=== PATIENT | male | born 1950 | race Caucasian/White ===

== ENCOUNTER → 2020-12-08 10:16 | Outpatient (BNVA) | payer MEDICARE, OTHER, SELFPAY | PROVIDERS: PCP Nurse Practitioner Family; Visit Provider Internal Medicine | DX: Z13.89 Encounter for screening for other disorder (principal) | CPT/HCPCS: Q3014 ==

== ENCOUNTER → 2021-11-21 11:13 | Outpatient (BNVA) | payer MEDICARE, SELFPAY | PROVIDERS: PCP Nurse Practitioner Family; Visit Provider Internal Medicine | DX: G47.33 Obstructive sleep apnea (adult) (pediatric) (principal); Z99.89 Dependence on other enabling machines and devices | CPT/HCPCS: 99212 ==

== ENCOUNTER 2024-04-16 08:56 | Outpatient (REF) | payer MEDICARE, OTHER, SELFPAY ==
--- NOTE | ~2024-04-16 | FL_ITS ---
EXAMINATION: XR FLUOROSCOPY UPPER GI WITH AIR CLINICAL INFORMATION: Dysphagia COMPARISON: None TECHNIQUE: Fluoroscopic air contrast upper GI examination was performed utilizing standard techniques with thin and thick barium and effervescent granules. Numerous spot images were obtained. FINDINGS: Lateral cine images of the oropharynx and hypopharynx demonstrate delayed swallow mechanism. There is premature filling of the vallecula and piriform sinuses. There is laryngeal penetration observed with thick barium above the level the vocal cords. No tracheal penetration, glottic or subglottic aspiration identified. No nasopharyngeal reflux present. A small diverticulum is noted in the hypopharynx at the level C3. There was no significant cricopharyngeal achalasia. Dual and single contrast images of the esophagus demonstrate normal caliber, contour, and mucosal pattern. No evidence of mass, or ulcerations identified. Esophageal peristalsis was mildly disorganized. There is mild narrowing of the GE junction. 13 mm barium tablet was administered. There is temporary stasis of the barium tablet above the GE junction that eventually passes into the stomach with subsequent swallowing. No evidence of hiatus hernia identified. No significant gastroesophageal reflux was seen during the course of the examination and on reflux views. Dual contrast and single contrast images of the stomach demonstrated normal contour and mucosal pattern without evidence of mass. A small ulceration with pooling of contrast is noted in the fundus of the stomach just distal to the GE junction (RF 1-13, image 26; RF 1-14, image 185). No heaped up margins or significant surrounding edema. Contrast freely passed into the gastric antrum and duodenal bulb without delay. Single and air-contrast images of the duodenal bulb demonstrate no abnormality. The duodenal sweep has a normal appearance, course, and mucosal fold appearance. The imaged proximal jejunum has a normal fold pattern and caliber. FLUOROSCOPY TIME: 4 minutes 11 seconds Number of Spot Images: 8 Number of Cine: 17 DOSE AREA PRODUCT: [id number] uGy-m2 (microgray-meter squared) FL/FL barium swallow with air IMPRESSION: 1. Delayed swallowing mechanism with premature spillage/filling of the vallecula and pyriform sinuses. 2. Laryngeal penetration with thick barium above the level of the vocal cords. No subglottic aspiration observed. 3. Mild esophageal dysmotility. 4. Small focus of pooling consistent with ulceration posterior wall fundus of the stomach just proximal to the GE junction. No heaped up margins or significant perilesional edema. This suggests benign ulcer. Consider correlating with EGD. 5. Mild narrowing of the GE junction that may represent achalasia, or a mild short segment benign stricture. The causes temporary stasis of the barium tablet above the GE junction eventually passed into the stomach with subsequent swallowing. This procedure was performed by Curtis Fleming PA-C, and supervised by Dr. Lew
== END 2024-04-16 08:57 | disposition home or self-care (01) ==
LOC: HO.XRAY 08:56
PROVIDERS: PCP Nurse Practitioner Family; Visit Provider Internal Medicine
DX: R13.10 Dysphagia, unspecified (principal)
CPT/HCPCS: 74221

== ENCOUNTER → 2024-04-16 08:58 | Outpatient (BNV) | payer MEDICARE, OTHER, SELFPAY | PROVIDERS: PCP Nurse Practitioner Family; Visit Provider Physician Assistant Surgical | DX: R13.10 Dysphagia, unspecified (principal) | CPT/HCPCS: 74246 ==

== ENCOUNTER 2024-06-05 07:18 | Day surgery (SDC) | payer MEDICARE, OTHER, SELFPAY ==
[2024-06-03 15:09] VITALS: BMI 29.6
[2024-06-05 07:26] VITALS: BMI 28.6
--- NOTE | 2024-06-05 07:30 | P.CONAN_ITS ---
Documented by User: Miranda Silva NP 06/04/24 09:27 HPI - Anesthesia Eval Consult details Narrative: 73yo M for Upper Endoscopy and Colonoscopy [facility] Active Problems Active Problems: All Active Problems MARELY on CPAP (Acute) Past Medical History Medical History Prostate cancer Elevated cholesterol MARELY on CPAP Surgical History Surgical History Hx of bilateral hip replacements Hx of prostatectomy History of lung surgery H/O colonoscopy Social History Social History (Updated 06/03/24 @ 15:10 by Jessica Deshpande RN) Household Members: Spouse Patient Tobacco Use Status: Former Tobacco user Are you DNR?: No Advance Directives: No Advance Directives Information Provided: Yes Nutrition Risks: No Nutritional Risk Meds Allergies Allergy/AdvReac Type Severity Reaction Status Date / Time Penicillins Allergy Severe Hives Verified 06/05/24 07:40 morphine AdvReac Unknown paranoid Verified 06/05/24 07:40 Home Medications ?Medication ?Instructions ?Recorded ?Confirmed ?Last Taken ?Type calcium carbonate 600 mg-vitamin 1 tab PO DAILY 06/03/24 06/03/24 Unknown History D3 5 mcg (200 unit) tablet cyanocobalamin (vitamin B-12) 100 100 mcg PO DAILY 06/03/24 06/03/24 Unknown History mcg tablet (Vitamin B-12) omega 4-dbp-mpr-fish oil 900 1 cap PO DAILY 06/03/24 06/03/24 05/27/24 History mg-1,400 mg capsule,delayed release omeprazole 20 mg capsule,delayed 20 mg PO QAM 06/03/24 06/03/24 Unknown History release Exam Height,Weight and Vital Signs: Height 5 ft 6.5 in Weight 84.368 kg Assessment and Plan Assessment Anesthesia Assessment: Chart Reviewed Documented by User: Florence Fuentes DO 06/05/24 07:43 [facility] Past Medical History Medical History Prostate cancer Elevated cholesterol MARELY on CPAP Family History Family history of problems with anesthesia: No Surgical History Surgical History Hx of bilateral hip replacements Hx of prostatectomy History of lung surgery H/O colonoscopy History of Problems with Anesthesia: No Social History Social History (Updated 06/03/24 @ 15:10 by Jessica Deshpande RN) Household Members: Spouse Patient Tobacco Use Status: Former Tobacco user Are you DNR?: No Advance Directives: No Advance Directives Information Provided: Yes Nutrition Risks: No Nutritional Risk Meds Allergies Allergy/AdvReac Type Severity Reaction Status Date / Time Penicillins Allergy Severe Hives Verified 06/05/24 07:40 morphine AdvReac Unknown paranoid Verified 06/05/24 07:40 Home Medications ?Medication ?Instructions ?Recorded ?Confirmed ?Last Taken ?Type calcium carbonate 600 mg-vitamin 1 tab PO DAILY 06/03/24 06/03/24 Unknown History D3 5 mcg (200 unit) tablet cyanocobalamin (vitamin B-12) 100 100 mcg PO DAILY 06/03/24 06/03/24 Unknown History mcg tablet (Vitamin B-12) omega 0-eob-ekn-fish oil 900 1 cap PO DAILY 06/03/24 06/03/24 05/27/24 History mg-1,400 mg capsule,delayed release omeprazole 20 mg capsule,delayed 20 mg PO QAM 06/03/24 06/03/24 Unknown History release Exam Exam Date and Time: June 05, 2024 0730 Height,Weight and Vital Signs: Height 5 ft 6.5 in Weight 84.368 kg Vital Signs Temperature 98.2 F 06/05/24 07:38 Pulse Rate 57 06/05/24 07:38 Respiratory Rate 18 06/05/24 07:38 Blood Pressure 134/72 06/05/24 07:38 Pulse Oximetry 100 06/05/24 07:38 Oxygen Delivery Method Room Air 06/05/24 07:38 Temperature 98.2 F 06/05/24 07:38 Pulse Rate 57 06/05/24 07:38 Respiratory Rate 18 06/05/24 07:38 Blood Pressure 134/72 06/05/24 07:38 Pulse Oximetry 100 06/05/24 07:38 Oxygen Delivery Method Room Air 06/05/24 07:38 Airway Mallampati Class: II TM Dist: >3cm Neck ROM: Full Loose/Missing/Broken Teeth: No (patient denies any loose or broken teeth) Heart: S1S2 Lungs: CTAB Assessment and Plan Assessment Anesthesia Assessment: Anesthesia Plan Discussed and Chart Reviewed Final Anesthetic Review Family History of Problems with Anesthesia: No History of Problems with Anesthesia: No NPO: Yes ASA Class: II Final Preanesthetic Review: No Changes in Pt Med Stat, Meds/Allgs Chart Reviewed, Consent Obtained/Reviewed and Anes Risks/Benef Reviewed Patient Risk: Low Procedure Risk: Low Anesthetic Plan Anesthetic Plan: MAC: and Agree w/ Assess. and Plan Disposition: Standard PACU
[2024-06-05] MEDS: Lactated Ringers 1,000 ML 100 ML IVCONT (07:34)
[2024-06-05 07:38] VITALS: BP 134/72; PULSE 57; RESP 18; TEMP 36.8; O2SAT 100
[2024-06-05 08:52] VITALS: BP 103/63; PULSE 60; RESP 16; TEMP 36.3; O2SAT 97
--- NOTE | 2024-06-05 08:57 | PM.OP ---
Brief Operative Note Date of Service: 06/05/24 Pre-op diagnosis: GERD, Cough, Screening Post-op diagnosis: other (Hiatal hernia, Polyps) Procedure: EGD with biopsies, Colonoscopy to the cecum with cold snare polypectomy of ascending colon polyp and bx/removal of polyps Surgeon: Godwin Hernández MD Anesthesia: MAC Was an Bleach Plant Operator used for this Procedure?: No Estimated blood loss (mL): 2.0 Pathology: other (A. EG Junction at 39cm B. Rectal polyps C. Ascending colon polyp) Condition: stable Disposition: PACU
[2024-06-05 09:07] VITALS: BP 127/89; PULSE 56; RESP 16; O2SAT 98
--- NOTE | 2024-06-05 09:28 | OP_ITS ---
DATE OF SERVICE: 06/05/2024 SURGEON: Godwin Hernández MD INDICATIONS: The patient presents for evaluation of chronic coughing, abnormal barium swallow, colorectal cancer screening and personal history of tubular adenoma of the colon. Full consent has been obtained from him for this, including risks of bleeding and perforation. PREOPERATIVE DIAGNOSIS: POSTOPERATIVE DIAGNOSIS: PROCEDURE PERFORMED: Esophagogastroduodenoscopy with biopsies, and colonoscopy to the cecum with cold snare polypectomy, and biopsy and removal of polyps. ESTIMATED BLOOD LOSS: COMPLICATIONS: ANESTHESIA: Monitored anesthesia care. ASSISTANTS: SPECIMENS: PREOPERATIVE DIAGNOSES: Coughing, abnormal barium swallow, colorectal cancer screening, personal history of tubular adenomas. POSTOPERATIVE DIAGNOSES: Coughing, abnormal barium swallow, colorectal cancer screening, personal history of tubular adenomas, small hiatal hernia, small colon polyps, mild diverticulosis, and small internal hemorrhoids. DESCRIPTION OF PROCEDURE: The patient was placed in the left lateral decubitus position. The Olympus video gastroscope was passed in the posterior oropharynx and upper esophagus under direct vision. The scope was passed slowly into the distal esophagus. The gastroesophageal junction appeared at 39 cm. There was a very minimal irregularity and edema at this level, but there was no evidence of any inflammation nor any gross evidence of Mancuso esophagus. There was no sign of any obstructing esophageal ring, nor any other abnormality. The scope easily entered the stomach there was a small hiatal hernia. The scope was advanced to the pylorus, and the duodenum was cannulated to the descending portion. The duodenum including the bulb appeared normal without mass or ulceration. The scope was withdrawn back to the stomach. The gastric antrum and body appeared normal with good peristalsis. The scope was retroflexed, visualizing the proximal stomach carefully, which appeared normal, without any sign of mass or ulceration. Scope was straightened and withdrawn back to the esophagus. Biopsies were obtained at the EG junction at 39 cm. Proximal to this, the esophageal mucosa appeared normal. The proximal esophagus and upper esophageal sphincter appeared normal. The scope was withdrawn from the patient. He was turned around for the colonoscopy. The digital rectal exam revealed no abnormalities. The Olympus video pediatric colonoscope was entered into the rectum and advanced easily to the cecum. Once in the cecum, I did identify normal-appearing cecal pouch with appendiceal orifice and a normal-appearing ileocecal valve. The entire cecum and ileocecal valve appeared normal. The scope was slowly withdrawn assessing all mucosal surfaces carefully. Preparation was excellent. In the proximal ascending colon was a flat, approximately 6 mm polyp, which was removed by cold snare polypectomy and recovered by suction. The polypectomy site appeared clean, without any sign of residual polyp nor any significant bleeding. In the rectum were 2, approximately 3 mm polyps, which were each biopsied and completely removed with a cold biopsy forceps. I did not visualize any other polyps, colitis, or angiodysplasia. There was a mild amount of sigmoid diverticulosis. In the rectum scope was retroflexed visualizing internal hemorrhoids. The scope was straightened and withdrawn from the patient. He tolerated both procedures well and was returned to the recovery area in stable condition. IMPRESSION: 1. Colon polyps. 2. Diverticulosis. 3. Internal hemorrhoids. 4. Small hiatal hernia. PLAN: The results of the biopsies will be checked. Given these minimal findings and his age, I do not think he would need any further screening colonoscopies. He has been using omeprazole since the barium swallow, but this has not helped his cough. I do not think his cough is related to reflux and given today's findings, I advised him to stop the omeprazole. At this point, he will see me on a p.r.n. basis. This has been discussed with his . MD EFE Evans/ENEDINA / [phone]
--- NOTE | 2024-06-05 09:37 | PC.NURSE ---
24hr update documented on paper
== END 2024-06-05 09:49 | disposition home or self-care (01) ==
PROVIDERS: PCP Nurse Practitioner Family; Visit Provider Internal Medicine
PROC: (CPT 45385; principal; 2024-06-05 08:30)
DX: Z12.11 Encounter for screening for malignant neoplasm of colon (principal); Z86.010 Personal history of colon polyps; D12.2 Benign neoplasm of ascending colon; D12.8 Benign neoplasm of rectum; K57.30 Diverticulosis of large intestine without perforation or abscess without bleeding; K64.8 Other hemorrhoids; R13.10 Dysphagia, unspecified; R05.3 Chronic cough; K44.9 Diaphragmatic hernia without obstruction or gangrene; E78.5 Hyperlipidemia, unspecified; Z85.46 Personal history of malignant neoplasm of prostate; G47.33 Obstructive sleep apnea (adult) (pediatric); Z79.899 Other long term (current) drug therapy; Z99.89 Dependence on other enabling machines and devices; Z98.890 Other specified postprocedural states; Z88.0 Allergy status to penicillin; Z88.5 Allergy status to narcotic agent; Z87.891 Personal history of nicotine dependence
CPT/HCPCS: 45385; 45380; 43239; 88305; 88313; J1596; J2704

== ENCOUNTER 2025-01-20 15:37 | Outpatient (AMB) | payer MEDICARE, OTHER, SELFPAY ==
--- NOTE | 2025-01-20 15:47 | A.OFFVIS_ITS ---
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: No Allergies Penicillins Allergy (Severe, Verified 01/20/25 15:52) Hives morphine Adverse Reaction (Unknown, Verified 01/20/25 15:52) paranoid Medication List - Last Reviewed 01/20/25 by ARIELLA Bonner calcium carbonate-vitamin D3 600 mg-5 mcg (200 unit) 1 tab PO DAILY cholecalciferol (vitamin D3) 50 mcg PO DAILY cyanocobalamin (vitamin B-12) (Vitamin B-12) 100 mcg PO DAILY omega 2-giv-ujd-fish oil 900-1,400 mg 1 cap PO DAILY Do you need a note to return to daycare/school/sports/work: No HPI HPI Obstructive sleep apnea: Details: Arian is 74 years old male with diagnosis of obstructive sleep apnea for the past many years. He has been a regular user of CPAP all those years He had new CPAP device about 3 years ago. His CPAP device has been working fine and he is getting supplies every 6 months. He was on scheduled to be seen once a year by me but missed a couple years. Today he comes for a follow-up and states that his monitoring system indicates that he is having high level of obstructive events. And on those nights when he has high number of apneas, he does feels somewhat sleepy during the day. He has not put. on any extra weight He uses nasal mask which works fine, .and is comfortable His CPAP Machine works okay without making any unusual nice [facility] Medical History Prostate cancer Elevated cholesterol MARELY on CPAP Surgical History Hx of bilateral hip replacements Hx of prostatectomy History of lung surgery H/O colonoscopy Social History Household Members: Spouse Patient Tobacco Use Status: Former Tobacco user Review of Systems Const All systems reviewed & are unremarkable except as noted in HPI and below Eyes Reports no additional complaints ENT Reports nasal congestion (Mild off and on especially in the morning hours) Card Denies chest pain, Denies irregular heart rhythm and Denies leg edema GI Reports no additional complaints Reports no additional complaints Musc Reports no additional complaints Skin/Breast Reports system reviewed and no additional complaints, except as documented Neuro Reports no additional complaints Psych Reports no additional complaints Physical Exam Vital Signs: Last Vital Signs Pulse 77 01/20/25 15:48 BP 130/74 01/20/25 15:48 Pulse Ox 98 01/20/25 15:48 Oxygen Delivery Method Room Air 01/20/25 15:48 BMI result Body Mass Index 29.7 Const General: healthy appearing, comfortable, no acute distress, alert and awake Orientation/consciousness: patient oriented x3 HEENT Head: Yes normal to inspection General nose exam: No nasal polyps present, No nasal discharge present and Other nasal findings present (Mild hypertrophy of the inferior nasal turbinate on the left side .) Face and sinus: Yes sinuses nontender Mouth: oropharynx normal Throat: Yes posterior oropharynx normal Eyes General: appearance normal, both eyes and all related structures Neck Neck: Yes normal visual inspection, Yes no lymphadenopathy, Yes trachea midline and Yes no JVD Thyroid: Thyroid normal Chest Chest palpation & inspection: normal inspection of the chest, normal palpation of entire chest wall and no tenderness Resp Effort & Inspection: normal respiratory effort Auscultation: clear to auscultation bilaterally, no crackles and no wheezes Percussion: percussion normal Cardio Palpation: normal PMI Rate: regular rate Rhythm: regular rhythm Heart sounds: no gallops and no murmurs Peripheral pulses: Peripheral pulses 2+ throughout GI Palpation (GI): Soft to palpation, nontender, No hepatosplenomegaly present and no masses Auscultation: normal bowel sounds Back/Spine/Pelvis Thoracic/Lumbar Spine: thoracic and lumbar spine normal to inspection Skin General skin exam: no rashes or lesions noted Neuro General: patient oriented x3 and no focal motor deficits Cranial nerves: Yes CN's II-XII intact bilaterally Extrem General: Yes normal to inspection, Yes no clubbing, cyanosis or edema and Yes no calf tenderness Psych Appearance: grossly normal and well kempt Speech and movement: Normal speech and movement present Results Reviewed Results Reviewed: Compliance report for the last 30 nights is reviewed and he has used 30/30 nights, 100%. His average use it per. Night 8 hours 6 minutes Pressure is set at CPAP 9 cm, There is no significant air leak. His residual AHI is 14, which is high Assessment & Plan Assessment & Plan (1) MARELY on CPAP: Comment: LONG-TERM CASE OF MARELY. VERY COMPLIANT TO USE CPAP AT NIGHT, SLEEPS VERY GOOD AND HAS NO ISSUES RELATING TO THE MASK OR MACHINE HOWEVER THE CONTROL OF THE OBSTRUCTIVE EVENTS IS SUBOPTIMAL. I THINK THIS MAY BE DUE TO RELATIVELY LOW PRESSURE OF 9 CM. Code(s): G47.33 - Obstructive sleep apnea (adult) (pediatric); Z99.89 - Dependence on other enabling machines and devices Category: Medical Plan: WE WILL ADJUST THE PRESSURE UPWARD TO 12 CM, AND CHECK HIS COMPLIANCE REPORT AFTER 2 MONTHS. Coding Level of Care Code Est Pt Level 3 (81220) Diagnoses MARELY on CPAP G47.33; Z99.89
[2025-01-20 15:48] VITALS: BP 130/74; PULSE 77; O2SAT 98; BMI 29.7
--- OUTSIDE RECORDS SUMMARY | 2025-01-20 18:18 | XMS_ITS ---
[facility] Address [address] [place] [place] [address] Care Team Providers Care Director Ehs Name Role Phone Flaca Aylin LEE Primary Care Provider Unavail able Tarsha Villarreal Unavailable [phone] Allergies Allergen (clinical drug ingredient) Drug/Non Drug Allergy documented on EMR Reaction Allergy Type Onset Date Status morphine Morphine Extreme Paranoia Drug Allergy Active Penicillin hives Drug Allergy Active REASON FOR VISIT PCP: 08/2024, Fungal Nails, Skin Problem Medications Medication SIG (Take, Route, Frequency, Duration) Notes Start Date End Date Status Fish Oil Active B12 Active Calcium 600 MG 1 tablet with meals Orally Twice a day Active Ciclopirox 0.77 % 1 application Winder Tender ally Once a day for 30 days Active Vitamin D3 20 MCG (800 UNIT) 1 tablet Orally Once a day A ctive Ciclopirox Olamine 0.77 % 1 application Externally Twice a day to skin of feet including between the toes for 30 days Active Social History Tobacco Use: Social History Observation Description Date Details (start date - stop date) Former Smoker NA - NA Tobacco use other than smoking: Question Answer Notes Are you an other tobacco user? No Tobacco Control (Standard) Question Answer Notes Tobacco use: Former smoker How long has it been since you last smoked? 5-10 years Additional Findings: Tobacco non-user Current no nsmoker AUDIT-C (Standard) Question Answer Notes Did you have a drink contain ing alcohol in the past year? Yes How often did you have six o r more drinks on one occasion in the past year? Declined to specify (0 point) How many drinks did you have on a typical day when you were drinking in the past year? Declined to specify (0 point) How often did you have a dri nk containing alcohol in the past year? Daily or almost daily (4 points) Points 4 Interpretation Positive Vital Signs Height 5 ft 6inch in 10/26/2024 Weight 180 lbs 10/26/2024 BMI 29.05 kg/m2 10/26/2024 Procedures Procedure Date Ordered Date Performed Result Body Sit e 18970-WYUWTVA NAIL, 6 OR MORE 10/26/2024 N/A Encounters Encounter Location Date Provider Diagnosis [facility] [address] [place] [address] 10/26/2024 Tarsha Villarreal Pain in right toe(s) M79.674 ; Onychomycosis B35.1 ; Pain in left toe(s) M79.675 and Tinea pedis of both feet B35.3 Assessments Encounter Date Diagnosis (ICD Code) Assessment Notes Treatment Notes Treatment Clinical Notes Section Notes 10/26/2024 Pain in right toe(s) (ICD-10 - M79.674) 10/26/2024 Onychomycosis (ICD-10 - B35.1) 10/26/2024 Pain in left toe(s) (ICD-10 - M79.675) 10/26/2024 Tinea pedis of both feet (ICD-10 - B35.3) Plan Of Treatment Medication Medication Name Sig Start Date Stop Date Notes Ciclopirox 0.77 % 1 application Winder Tender ally Once a day for 30 days Ciclopirox Olamine 0.77 % 1 application Externally Twice a day to skin of feet including between the toes for 30 days Pending Test Test Name Order Date [id number] NAIL, 6 OR MORE 10/26/2024 Next Appt Details Follow Up: prn, Reason: Procedure Notes * Category Sub-Category Detail Notes Debride Nail 6-10 Nail debridement Due to the cl inical pathology outlined in the exam findings, performance of this nail treatment is medically necessary as its management by an unskilled/untrained nonprofessional would put this patients foot and overall health at risk. Therefore, debridement to affected nail(s), as described in exam ( TA, T1, T2, T3, T4, T5, T6, T7, T8, T9 ), was performed exclusively by the physician of record to reduce/remove overall nail length, girth, thickness, subungual debris, and necrotic tissue, by manual and/or electrical means through the use of a nail nipper and/or dremel-type external grinder tool, to a more viable healthy nail plate or bed tissue 6-10 nails in total. Silver nitrate was used for any petechial bleeding as necessary. Definitive antifungal treatment options, both pharmaceutical and surgical, have been reviewed and discussed with the patient. The patient solely prefers the use of intermittent/as needed professional debridement services for their nail condition and understands the need for additional periodic treatments to maintain effectiveness in symptomatic relief - 89975 Progress Notes * Collin MEEK DOB:[birth year] (74 yo M)Acc No.[id number]:10/26/2024 Progress Notes Patient:?Collin MEEK J r Provider:?Tarsha Villarreal DPM :1950???Age:74 Y???Sex:Male Joe e:10/26/2024 Address:[address] [place], [place] [id number] Pcp:ROSA Gomez Subjective: * Chief Complaints: * ???PCP: 08/2024Fungal NailsS kin Problem * HPI: ???Painful Nails:?Nature:?aching, tender, discolored, thick.?Location:?Both feet, all toes.?Duration:?several years.?Course:?worse.?Aggravated by:?shoegear causing difficulty standing/walking.?Treatments:?none.?Skin problems:?Nature:?scaling , redness.?Location:?B/L .?Duration:?several days.?Course:?worse.? * ROS:?General/Constitutional:?Nausea?denies.?Vomiting?denies.?Hunger Thirst?denies.?Loss appetite?denies.?Chills?denies.?Fatigue?denies.?Fever?denies.?Night Sweats?denies.?Unexplained weight loss?denies.?Unexplained weight gain?denies.?HEENTM:?Dentures?denies.?Dizziness?denies.?Glasses/contacts?admits.?Retinopathy?de nies.?Blurred/double vision?denies.?TMJ?denies.?Discharge/drainage?denies.?Implants?denies.?Sore throat?denies.?Dental implants?denies.?Hard of hearing ?denies.?Difficulty chewing/swallowing/speaking?denies.?Nose bleeds?denies.?Sore mouth?denies.?Respiratory:?On Oxygen?denies.?Pneumonia/pleurisy?denies.?Bronchitis?denies.?Emphysema?denies.?C oughing?denies.?Cough blood?denies.?Shortness of breath?denies.?Wheezing?denies.?Cardiovascular:?Pacemaker?denies.?MVP?denies.?WPW?denies.?CHF?denies.?Heart attack?denies.?Septal defect?denies.?Rapid beat?denies.?Chest pain ?denies.?Atrial Fib.?denies.?Murmur/Palpitations?denies.?Gastrointestinal:?Hemorrhoids?denies.?Stomach/Abdominal pain?denies.?Dark blood stool?denies.?Irritable bowel ?denies.?Constipation?denies.?Diarrhea?denies.?Hematology:?Swelling?denies.?Clots?denies.?Varicose Veins?denies.?Bruising?denies.?Bleeding problem?denies.?Genitourinary:?Blood urine?denies.?Frequent/Painfu/urination/bladder control?denies.?Kidney stones?denies.?Infection (UTI)?denies.?Nephropathy?denies.?sex trans dis (STD)?denies.?Prostate?admits.?Musculoskeletal:?Hammertoes?denies.?Bunions?denies.?Back Pain?denies.?Muscle Cramps/ Resting?denies.?Muscle cramps / walking?denies.?Generalized aches and pains?denies.?Weakness?denies.?Integ.:?Yip?denies.?Scars?denies.?Corns/calluses?denies.?Ingrown nails?denies.?Painful nails?denies.?Open Sores?denies.?Rashes?denies.?Neurologic:?Difficulty sleeping?denies.?Brain disorder?denies.?Numbness?denies.?Balance trouble?denies.?Confusion?denies.?Fainting/blackouts?denies.?Tingling?denies.?Tr emors?denies.? * Medical History:? * Surgical History:?Lower Left Lobectomy 11/1979prostatectomy 12/22/2015right hip replacement left hip replacement 08/29/2023Middle Right Lobectomy 2011Tendon surgery Left Thumb 04/28/2019 * Hospitalization/Major Diagno stic Procedure:?Denies Past Hospitalization * Family History:?Mother: dece ased, Foot problems, diagnosed with Family history of arthritis.?Father: .?Siblings: diagnosed with Other malignant neoplasm of unspecified site.? * Social History:?Tobacco Use:?Tobacco use other than smoking?Are you an other tobacco user??No ?Tobacco Control (Standard)?Tobacco use:?Former smoker ?How long has it been since you last smoked??5-10 years ?Additional Findings: Tobacco non-user?Current nonsmoker ???Drugs/Alcohol:?Drugs?Have you used drugs other than those for medical reasons in the past 12 months??No ???Miscellaneous:?Caffeine: yes, frequency: 3 cups. ?Exercise: yes, Gym excercise , 3-4 times per week. ?Marital status: . ?Occupation: Retired. ???Drug/Alcohol:?AUDIT-C (Standard)?Did you have a drink containing alcohol in the past year??Yes ?How often did you have six or more drinks on one occasion in the past year??Declined to specify (0 point) ?How many drinks did you have on a typical day when you were drinking in the past year??Declined to specify (0 point) ?How often did you have a drink containing alcohol in the past year??Daily or almost daily (4 points) ?Points?4 ?Interpretation?Positive * Medications:?TakingVitamin D 3 20 MCG (800 UNIT) Tablet 1 tablet Orally Once a day Calcium 600 MG Tablet 1 tablet with meals Orally Twice a day B12 Fish Oil Medication List reviewed and reconciled with the patientTaking Vitamin D3 20 MCG (800 UNIT) Tablet 1 tablet Orally Once a day Taking Calcium 600 MG Tablet 1 tablet with meals Orally Twice a day Taking B12 Taking Fish Oil Medication List reviewed and reconciled with the patient * Allergies:?Penicillin: hives Morphine: Extreme Paranoiayes[Allergies Verified] Objective: * Vitals:?Ht:5 ft 6inch, Wt:18 0, BMI:29.05, Shoe size:8.5EE, Ht-cm: 167.64 cm, Wt- k.65 kg. * Examination: ???General Examination: ?GENERAL APPEARANCE:?Reveals a pleasant, alert, well-nourished, well- developed, well hydrated individual, who demonstrates proper attention to hygiene/body habitus, and is in no acute distress, Pt serves as own?historian for office visit today.?ORIENTED:?person, place, and time.?Dermatologic: ?SKIN FINDINGS:?Skin shows sign(s) of, erythema, scaling, in a moccasin fashion, no fissure(s) present, B/L.?Nails: ?NAILS are:?Elongated, overgrown, dystrophic, lytic, greater than 3mm thick, discolored and friable with crumbly malodorous subungual debris, with pain on palpation, TA, T1, T2, T3, T4, T5, T6, T7, T8, T9.?Vascular: ?DP PULSES(B):?11/14, B/L.?PT PULSES(B):?11/14, B/L.?CAPILLARY FILL TIME:?immediate, all digits, B/L.?TROPHIC CONDITION-TEXTURE/ELASTICITY/TURGOR/HAIR GROWTH(B):?normal, B/L.?TEMPERTURE GRADIENT(C):?warm to cool, proximal to distal, B/L.?PIGMENTATION:?normal, B/L.?EDEMA(C):?absent, B/L.?Neurological: ?SENSORY:?Neurological exam reveals intact sensorium, pain sensation normal, vibration sensation intact, pinprick sensation is normal in the lower extremities, Pt denies, anesthesia, burning, paresthesia, tingling, B/L.?DEEP TENDON REFLEXES:?Achilles, 2/4, B/L.?Orthopedic: ?MUSCLE STRENGTH:?5/5 all groups in a symmetrical fashion , B/L.? Assessment: * Assessment: 1.?Pain in right toe(s) - M7 9.674???2.?Onychomycosis - B35.1 (Primary)???3.?Pain in left toe(s) - M79.675???4.?Tinea pedis of both feet - B35.3???Specify :Acute problem, Uncomplicated (3),Rx drug management (4)??? Plan: * Treatment: 2.?Tinea pedis of both feet? Start Ciclopirox Olamine Cream, 0.77 %, 1 application, Externally, Twice a day to skin of feet including between the toes, 30 days, 60, Refills 2.?? * Procedures:?Debride Nail 6-10:?Nail debridement?Due to the clinical pathology outlined in the exam findings, performance of this nail treatment is medically necessary as its management by an unskilled/untrained nonprofessional would put this patients foot and overall health at risk. Therefore, debridement to affected nail(s), as described in exam (?TA, T1, T2, T3, T4, T5, T6, T7, T8, T9 ), was performed exclusively by the physician of record to reduce/remove overall nail length, girth, thickness, subungual debris, and necrotic tissue, by manual and/or electrical means through the use of a nail nipper and/or dremel-type external grinder tool, to a more viable healthy nail plate or bed tissue 6- 10 nails in total. Silver nitrate was used for any petechial bleeding as necessary. Definitive antifungal treatment options, both pharmaceutical and surgical, have been reviewed and discussed with the patient. The patient solely prefers the use of intermittent/as needed professional debridement services for their nail condition and understands the need for additional periodic treatments to maintain effectiveness in symptomatic relief - 33982.? * Procedure Codes:?55699 DEBRI DE NAIL, 6 OR MORE, Modifiers: XS * Preventive Medicine:? ??Counseling:?Discussion:?-03: Office or other outpatient visit for the evaluation and management of a new patient, which required a medically appropriate history and/or examination and LOW level of DECISION MAKING for: 1 STABLE ACUTE UNCOMPLICATED PROBLEM, 2 OR MORE MINOR PROBLEMS, OR 1 STABLE CHRONIC PROBLEM, THAT POSE(S) A LOW RISK FOR MORBIDITY/MORTALITY. The visit on the day of the encounter encompassed interpreting the data and educating the patient as to the nature of their condition, treatment options available according to their individual PMH, meds, allergies, and overall health/living conditions, as well as any potential risks or complications that may occur from a failure to adhere to, and participate in, the recommended course of therapy. The discussion included a complete verbal, and/or written explanation of the examination results, any x-rays taken, the proposed diagnosis, and outline of the treatment plan. A schedule for future care needs was also explained. The patient verbalized an understanding of the instructions at this time and agreed to be an active participant in their treatment. If the patient should think of any questions or concerns after the visit, I have encouraged the patient to call the office.?Fungal Nail Counseling:?The patient was counseled on the diagnosis, potential etiologies (including, but not limited to, environmental factors, genetic, immune deficiency), and the multiple treatment options for Onychomycosis. We discussed the risks and benefits of each option from performing no treatment, to ultraviolet light shoe treatment, to laser nail treatment, to applying topical antifungals, to taking oral antifungal medication, to surgical removal of the involved nail(s) with or without performing a matricectomy, or any combination thereof. We discussed the advantages and disadvantages of each of possible treatment and importance for adherence to all the recommended therapies for optimum success. This includes the necessity for weekly emery board self nail home debridements, and control the nail and skin environment as much as possible by only using a fresh, dry pair of shoes/socks each day, as well as keeping the skin as dry as possible through the use of sprays/powders if necessary. The patient was instructed to discard the emery board after use to prevent reinfection of the involved nail(s). We discussed the mycological and visual clinical effectiveness of topical vs oral antifungal treatments as well as each ones potential side effects and/or any patient- specific medication interactions. We discussed the reasons behind the important requirement of regular liver function testing with oral antifungal therapy for safety. Patient questions regarding use, dosage, successful outcomes, blood tests, and possible pharmaceutical interactions were reviewed and the patient verbalized that all answers were clearly understood, The patient presently prefers topical treatment, Ciclopirox 0.77 gel was Rxed. Apply as directed to nails twice daily.?Tinea Pedis:?The patient was counseled on the diagnosis, potential etiologies, and treatment options for their skin condition. We discussed the risks and benefits of each option from performing no treatment, to utilizing OTC topical skin creams, prescription topical creams, customized compounded topical medications, and, if necessary, to utilize oral antifungal therapy. We discussed the advantages and disadvantages of each possible treatment and importance for adherence to all the recommended therapies for optimum success and avoid potential complications such as open sore/infection/possible hospitalization. We discussed the potential effectiveness of each topical preparation as well as each ones possible side effects and/or patient medication interactions if oral therapy is selected. Patient questions re: the advantages and disadvantages of each treatment choice, medication use/dosage, successful outcomes, and application consistency were reviewed and the patient verbalized that all answers were clearly understood. The patient was told they can help alleviate symptoms by utilizing moisture absorbant innersoles with activated charcoal and baking soda, applying antifungal sprays daily, aerating toe web spaces at night by putting cotton or lambs wool between the toes, alternating shoe gear daily if possible so they can dry out, changing socks at least once during the day, wearing well-ventilated shoes or sandals. The patient has decided to apply antifungal skin creams to their feet as directed. Rx was sent to their pharmacy at the time of visit.? * Follow Up:?prn * Images: * Sign off status: Completed true * Provider:?Tarsha Villarreal DPM Date:?12/27/2023 Generated for Patricia jorge/Ricki/Fatoumataitting on:?01/20/2025 06:18 PM EDT History and Physical Notes * HPI (History of Present Illness) Category Sub-Category Detail Notes Category Not es Painful Nails Aggravated by: shoegear causing difficulty standing/walking Course: worse Duration: several years Location: Both feet, all toes Nature: aching, tender, disc olored, thick Treatments: none Skin problems Nature: scaling , redness Location: B/L Duration: several days Course: worse Examination Category Sub-Category Detail Notes Category Not es Neurological SENSORY: Neurological exa m reveals intact sensorium, pain sensation normal, vibration sensation intact, pinprick sensation is normal in the lower extremities, Pt denies, anesthesia, burning, paresthesia, tingling, B/L DEEP TENDON REFLEXES: Achilles, 2/4, B/L Dermatologic SKIN FINDINGS: Skin shows sign( s) of, erythema, scaling, in a moccasin fashion, no fissure(s) present, B/L Orthopedic MUSCLE STRENGTH: 5/5 all groups in a symm etrical fashion , B/L General Examination GENERAL APPEARANCE: Reveals a pleasant, alert, well- nourished, well-developed, well hydrated individual, who demonstrates proper attention to hygiene/body habitus, and is in no acute distress, Pt serves as own historian for office visit today ORIENTED: person, place, and t yoselin Vascular DP PULSES (B): 11/14, B/L PT PULSES (B): 11/14, B/L CAPILLARY FILL TIME: immediate, all digi ts, B/L TEMPERTURE GRADIENT (C): warm to cool, p roximal to distal, B/L TROPHIC CONDITION-TEXTURE/ELASTICITY/TURGOR/HAIR GROWTH (B): normal, B/L EDEMA (C): absent, B/L PIGMENTATION: normal, B/L Nails NAILS are: Elongated, overg rown, dystrophic, lytic, greater than 3mm thick, discolored and friable with crumbly malodorous subungual debris, with pain on palpation, TA, T1, T2, T3, T4, T5, T6, T7, T8, T9
--- OUTSIDE RECORDS SUMMARY | 2025-01-20 18:18 | XMS_ITS | Patient Health Record ---
Author Organization [facility] Address [address] [place] [address] Care Team Providers Care Design Tech Name Role Phone Kyaw Thayer CNP Primary Care Provider Godwin Blum Unavailable [phone] Allergies Allergen (clinical drug ingredient) Drug/Non Drug Allergy documented on EMR Reaction Allergy Type Onset Date Status Penicillin Unknown Drug Allergy Active morphine Morphine Sulfate Unknown Drug Allergy Active Results Component Value Reference Range Notes FL barium swallow with air Reviewed date:04/25/2024 01:24:49 PM Interpretation: Performing Lab: Notes/Report: [address] [address] Fluoroscopy Report Signed Patient: Collin Meek MR#: [id number] : 1950 Acct:[id number] Age/Sex: 73 / M ADM Date: 04/16/24 [facility] Dr: Godwin Hernández MD Ordering Physician: Godwin Hernández Date of Service: 04/16/24 Procedure(s): FL barium swallow with air Accession Number(s): [id number] cc: KYAW THAYER INSTRUMENT AND ELECTRICAL TECHNICIAN; Godwin Hernández EXAMINATION: XR FLUOROSCOPY UPPER GI WITH AIR CLINICAL INFORMATION: Dysphagia COMPARISON: None TECHNIQUE: Fluoroscopic air contrast upper GI examination was performed utilizing standard techniques with thin and thick barium and effervescent granules. Numerous spot images were obtained. FINDINGS: Lateral cine images of the oropharynx and hypopharynx demonstrate delayed swallow mechanism. There is premature filling of the vallecula and piriform sinuses. There is laryngeal penetration observed with thick barium above the level the vocal cords. No tracheal penetration, glottic or subglottic aspiration identified. No nasopharyngeal reflux present. A small diverticulum is noted in the hypopharynx at the level C3. There was no significant cricopharyngeal achalasia. Dual and single contrast images of the esophagus demonstrate normal caliber, contour, and mucosal pattern. No evidence of mass, or ulcerations identified. Esophageal peristalsis was mildly disorganized. There is mild narrowing of the GE junction. 13 mm barium tablet was administered. There is temporary stasis of the barium tablet above the GE junction that eventually passes into the stomach with subsequent swallowing. No evidence of hiatus hernia identified. No significant gastroesophageal reflux was seen during the course of the examination and on reflux views. Dual contrast and single contrast images of the stomach demonstrated normal contour and mucosal pattern without evidence of mass. A small ulceration with pooling of contrast is noted in the fundus of the stomach just distal to the GE junction (RF 1-13, image 26; RF 1-14, image 185). No heaped up margins or significant surrounding edema. Contrast freely passed into the gastric antrum and duodenal bulb without delay. Single and air-contrast images of the duodenal bulb demonstrate no abnormality. The duodenal sweep has a normal appearance, course, and mucosal fold appearance. The imaged proximal jejunum has a normal fold pattern and caliber. FLUOROSCOPY TIME: 4 minutes 11 seconds Number of Spot Images: 8 Number of Cine: 17 DOSE AREA PRODUCT: [id number] uGy-m2 (microgray-meter squared) FL/FL barium swallow with air IMPRESSION: 1. Delayed swallowing mechanism with premature spillage/filling of the vallecula and pyriform sinuses. 2. Laryngeal penetration with thick barium above the level of the vocal cords. No subglottic aspiration observed. 3. Mild esophageal dysmotility. 4. Small focus of pooling consistent with ulceration posterior wall fundus of the stomach just proximal to the GE junction. No heaped up margins or significant perilesional edema. This suggests benign ulcer. Consider correlating with EGD. 5. Mild narrowing of the GE junction that may represent achalasia, or a mild short segment benign stricture. The causes temporary stasis of the barium tablet above the GE junction eventually passed into the stomach with subsequent swallowing. This procedure was performed by Curtis Fleming PA-C, and supervised by Dr. Lew Dictated By: Curtis Fleming Signed By: <Electronically signed by Curtis Fleming in OV> 04/17/24 1507 <Electronically signed by Srinivas Lew MD in OV> 04/17/24 1510 DD/ 1045 TD/TT: Plug Overwrap Machine Tender: [address] [address] Fluoroscopy Report Signed Patient: Kaleb Meek MR#: [id number] : 1950 Acct:[id number] Age/Sex: 73 / M ADM Date: 04/16/24 Loc: [facility] Attending Dr: Godwin Hernández MD Ordering Physician: Godwin Hernández Date of Service: 04/16/24 Procedure(s): FL bar ium swallow with air Accession Number(s): [id number] cc: KYAW THAYER; Godwin Hernández EXAMINATION: XR FLUOROSCOPY UPPER GI WITH AIR CLINICAL INFORMATION: Dysphagia COMPARISON: None TECHNIQUE: Fluoroscopic air con trast upper GI examination was performed utilizing standard techniques with thin and thick barium and effervescent granules. Numerous s pot images were obtained. FINDINGS: Lateral cine images of the oropharynx and hypopharynx demonstrate delayed swallow mech anism. There is premature filling of the vallecula and piriform sinuses . There is laryngeal penetration observed with thick barium above t he level the vocal cords. No tracheal penetration, glottic or subglotti c aspiration identified. No nasopharyngeal reflux present. A small div erticulum is noted in the hypopharynx at the level C3. There was no sig nificant cricopharyngeal achalasia. Dual and single cont rast images of the esophagus demonstrate normal caliber, contour, an d mucosal pattern. No evidence of mass, or ulcerations identifi ed. Esophageal peristalsis was mildly disorganized. There is mild narrow ing of the GE junction. 13 mm barium tablet was administered. There is temporary stasis of the barium tablet above the GE junction that lexii ntually passes into the stomach with subsequent swallowing. No evidence of hiatu s hernia identified. No significant gastroesophageal ref lux was seen during the course of the examination and on reflux views. Dual contrast and si ngle contrast images of the stomach demonstrated normal contour and m ucosal pattern without evidence of mass. A small ulceration with pool ing of contrast is noted in the fundus of the stomach just distal to the GE junction (RF 1-13, image 26; RF 1-14, image 185). No heape d up margins or significant surrounding edema. Contrast freely pass ed into the gastric antrum and duodenal bulb without delay. Single and air-contr ast images of the duodenal bulb demonstrate no abnormality. The duo denal sweep has a normal appearance, course, and mucosal fold appeara nce. The imaged proximal jejunum has a normal fold pattern and caliber. FLUOROSCOPY TIME: 4 minutes 11 seconds Number of Spot Images: 8 Number of Cine: 17 DOSE AREA PRODUCT: 2319 uGy-m2 (microgr ay-meter squared) F L/FL barium swallow with air IMPRESSION: 1. Delayed swallowin g mechanism with premature spillage/filling of the vallecula and pyriform sinuses. 2. Laryngeal penetra tion with thick barium above the level of the vocal cords. No subglottic aspiration observed. 3. Mild esophageal dysmotility. 4. Small focus of po oling consistent with ulceration posterior wall fundus of the stomac h just proximal to the GE junction. No heaped up margins or significa nt perilesional edema. This suggests benign ulcer. Consider correlating with EGD. 5. Mild narrowing of the GE junction that may represent achalasia, or a mild short segment b enign stricture. The causes temporary stasis of the barium tablet above the GE junction eventually passed into the stomach with subsequent swallowing. This procedure was p erformed by Curtis Fleming PA-C, and supervised by Dr. Lew Dictated By: Curtis Fleming Signed By: <Gildardo ically signed by Curtis Fleming in OV> 04/17/24 1507 <Electronically sign ed by Srinivas Lew MD in OV> 04/17/24 1510 DD/ 1045 TD/TT: Plug Overwrap Machine Tender: Pathology Reviewed date:06/21/2024 01:21:04 PM Interpretation: Performing Lab:[facility], [address] [place] [id number] Notes/Report: Name: Collin Meek Age/Sex: 73/M : 1950 [id number] Unit#: [id number] Attend Dr: Godwin Hernández MD Re06/05/24 Status : [facility] Location: [facility] Disch: SPEC : [id number] RECD : 06/05/24 STATUS: [facility] NUM: [id number] [place]: 06/05/24-800 [facility] DR: Godwin Hernández MD ENTERED: 06/05/24- 34 SP TYPE: Surgical OTHR DR: Kyaw Thayer INSTRUMENT AND ELECTRICAL TECHNICIAN ORDERED: HE Stain/9, Gross Micro L4/3, Special st. 2, AB/PAS Diagnosis A. EG junction, 39 cm, biopsy: - Cardiofundic-type mucosa with moderate chronic active inflammation; no intestinal metaplasia seen. - Active esophagitis with focal hyperkeratosis; negative for dysplasia. B. Rectum, polypectomies: - Tubular adenoma; n egative for high-grade dysplasia or carcinoma. - Hyperplastic mucosal polyp. C. Colon, ascending, polypectomy: Tubular adenoma; negative for high-grade dysplasia or carcinoma. Clinical History Pre-Op Dx: Cough, dysphagia Post-Op Dx: Hiatal h ernia, colon polyps, diverticulosis, hemorrhoids Microscopic Description A-C. Microscopic sec tions examined. No metaplastic changes are seen, supported by AB/PAS stains (A) Material Received A. EG junction at 39 cm B. Rectal polyps C. Ascending colon polyp Gross Description Received in three parts. Part A: Received in formalin labeled ?EG junction at 39 cm? are 3 lovett-pink irregular tissue fragments ranging fr om 0.2-0.3 cm, submitted in toto in a cassette labeled A. Part B: Received in formalin labeled ?rectal polyps? are 3 lovett-pink irregular tissue fragments each measu ring 0.3 cm, submitted in toto in a cassette labeled B. Part C: Received in formalin labeled ?ascending colon polyp? is a 0.3 cm lovett irregular tissue fragment, sub mitted in toto in a cassette labeled C. CEDS Special studies orde red and performed: AB/PAS stains on A CONTINUED ON NEXT PAGE Name: Collin Meek Age/Sex: 73/M : 1950 Unit#: [id number] Attend Dr: Godwin Hernández MD Re06/05/24 Status : [facility] Location: [facility] Disch: SPEC : [id number] RECD : 06/05/24 STATUS: [facility] NUM: [id number] [place]: 06/05/24 [facility] DR: Godwin Hernández MD ENTERED: 06/05/24- 34 SP TYPE: Surgical OTHR DR: Kyaw Thayer NP ORDERED: HE Stain/9, Gross Micro L4/3, Special st. 2, AB/PAS Copies To: Kyaw Thayer NP [facility] [address] [place] [address] Godwin Hernández MD [address] [place] [address] Signed (si gnature on file) Kerwin De Oliveira MD 06/09/24 1201 END OF REPORT Reason For Referral No Information Medications Medication SIG (Take, Route, Frequency, Duration) Notes Start Date End Date Status Calcium + D 500-1000-40 MG-UNT-MCG as directed Orally Active Vitamin B12 Active Omeprazole 20 MG 1 Orally Once a day every morning for 30 day(s) 04/25/2024 Active Fish Oil Active Problems Problem Type SNOMED Code ICD Code Onset Dates Problem Status W/U Status Risk Notes Problem Colon cancer screening (982102130) Colon cancer screening (Z12.11) Active confirmed Problem History of adenomatous polyp of colon (968334725) History of adenomatous polyp of colon (Z86.010) Active confirmed Problem Diverticular disease of colon (267187649) Diverticulosis of large intestine without perforation or abscess without bleeding (K57.30) Active confirmed Problem Dysphagia (16794727) Dysphagia (R13.10) Active confirmed Vital Signs Blood pressure diastolic 00 mm Hg 02/18/2024 Height 66.5 in 02/18/2024 Blood pressure systolic 00 mm Hg 02/18/2024 Weight 186 lbs 02/18/2024 BMI 29.57 kg/m2 02/18/2024 Encounters Encounter Location Date Provider Diagnosis [facility] [place] [facility] [address] [place], [place] [id number] 06/05/2024 Godwin Hernández Colon cancer screeni ng Z12.11 ; Colon polyps K63.5 ; Rectal polyp K62.1 ; Diverticulosis of large intestine without perforation or abscess without bleeding K57.30 ; Other hemorrhoids K64.8 ; Other specified disease of esophagus K22.89 ; Hiatal hernia K44.9 ; Abn findings-GI tract R93.3 and Chronic cough R05.3 [facility] [address] [place] [phone] 02/18/2024 Godwin Hernández History of adenomato us polyp of colon Z86.010 ; Dysphagia R13.10 and Colon cancer screening Z12.11 [facility] [address] [facility] [address] [place] [phone] 04/25/2024 Godwin Hernández Assessments Encounter Date Diagnosis (ICD Code) Assessment Notes Treatment Notes Treatment Clinical Notes Section Notes 06/05/2024 Colon cancer screening (ICD-10 - Z12.11) 06/05/2024 Colon polyps (ICD-10 - K63.5) 02/18/2024 History of adenomatous polyp of colon (ICD-10 - Z86.010) Overall, Collin appears quite well. I did recommend a followup colonoscopy for further screening given his last exam being over 10 years ago. We did review the rationale for that regard to colon cancer prevention. He was advised to stop his fish oil for one week before the procedure. In regard to the symptoms of coughing while eating this does not sound particularly worrisome. He did review that this could reflect possibility such as a Zenker's diverticulum. As such, I did recommend a barium swallow for evaluation of that. If the barium swallow is negative for the Zenker's diverticulum I advised him that I would then recommend with proceeding with an upper endoscopy on the same day as his colonoscopy. Full consent is obtained for both procedures, including risks of bleeding and perforation. The procedures will be done with monitored anesthesia care. Collin was comfortable with this plan. Thank you again for allowing me to participate in Collin's care. I shall continue to keep you advised of his progress. 02/18/2024 Dysphagia (ICD-10 - R13.10) Overall, Collin appears quite well. I did recommend a followup colonoscopy for further screening given his last exam being over 10 years ago. We did review the rationale for that regard to colon cancer prevention. He was advised to stop his fish oil for one week before the procedure. In regard to the symptoms of coughing while eating this does not sound particularly worrisome. He did review that this could reflect possibility such as a Zenker's diverticulum. As such, I did recommend a barium swallow for evaluation of that. If the barium swallow is negative for the Zenker's diverticulum I advised him that I would then recommend with proceeding with an upper endoscopy on the same day as his colonoscopy. Full consent is obtained for both procedures, including risks of bleeding and perforation. The procedures will be done with monitored anesthesia care. Collin was comfortable with this plan. Thank you again for allowing me to participate in Collin's care. I shall continue to keep you advised of his progress. 06/05/2024 Rectal polyp (ICD-10 - K62.1) 02/18/2024 Colon cancer screening (ICD-10 - Z12.11) Stop the fish oil for 1 week before the procedures Overall, Collin appears quite well. I did recommend a followup colonoscopy for further screening given his last exam being over 10 years ago. We did review the rationale for that regard to colon cancer prevention. He was advised to stop his fish oil for one week before the procedure. In regard to the symptoms of coughing while eating this does not sound particularly worrisome. He did review that this could reflect possibility such as a Zenker's diverticulum. As such, I did recommend a barium swallow for evaluation of that. If the barium swallow is negative for the Zenker's diverticulum I advised him that I would then recommend with proceeding with an upper endoscopy on the same day as his colonoscopy. Full consent is obtained for both procedures, including risks of bleeding and perforation. The procedures will be done with monitored anesthesia care. Collin was comfortable with this plan. Thank you again for allowing me to participate in Collin's care. I shall continue to keep you advised of his progress. 06/05/2024 Diverticulosis of large intestine without perforation or abscess without bleeding (ICD-10 - K57.30) 06/05/2024 Other hemorrhoids (ICD-10 - K64.8) 06/05/2024 Other specified disease of esophagus (ICD-10 - K22.89) 06/05/2024 Hiatal hernia (ICD-10 - K44.9) 06/05/2024 Abn findings-GI tract (ICD-10 - R93.3) 06/05/2024 Chronic cough (ICD-10 - R05.3) Plan Of Treatment Pending Test Test Name Order Date XR BARIUM SWALLOW-ESOPHAGUS 02/18/2024 Future Test Test Name Order Date COLONOSCOPY 03/03/2013 UPPER GI ENDOSCOPY 02/18/2024 COLONOSCOPY 02/18/2024 Insurance Providers Payer Name Payer Address Payer Phone Subscriber Number Group Number Insured Name Patient Relationship to Insured Coverage Start Date Coverage End Date MEDICARE OF [place] [address] [place] [address] [id number] CARRIER, COLLIN Self - patient is the insured [employer] [address] [place] [phone] [id number] CARRIER, COLLIN Self - patient is the insured Medical (General) History Medical History History ICD Code colonoscopy 04-27-2008--1 small tubular a denoma removed, mild diverticulosis bronchiectasis sleep apnea-uses a CPAP machine Denies PR,DM,CVA,,renal disease Hyperlipidemia Prostate cancer-surgery as below Negative screening colonoscopy in 04/2013 Surgical History Surgery Date(Month/Year) Left lower lung resection in 1979 for bronchiectasis, and another lung surgery in 2010 for the RML at [facility] Prostatectomy 2016 Total right hip replacement 2019 Total left hip replacement 2022
--- OUTSIDE RECORDS SUMMARY | 2025-01-20 18:18 | XMS_ITS | Patient Health Record ---
Author [facility] [place] Address [address] [place] [address] Care Team Providers Care Milk Bottling Machine Operator Name Role Phone Flaca Aylin LEE Primary Care Provider Unavail able Tarsha Villarreal Unavailable [phone] Allergies Allergen (clinical drug ingredient) Drug/Non Drug Allergy documented on EMR Reaction Allergy Type Onset Date Status morphine Morphine Extreme Paranoia Drug Allergy Active Penicillin hives Drug Allergy Active Reason For Referral No Information Medications Medication SIG (Take, Route, Frequency, Duration) Notes Start Date End Date Status Ciclopirox Olamine 0.77 % 1 application Externally Twice a day for 90 days Active Fish Oil Active B12 Active Calcium 600 MG 1 tablet with meals Orally Twice a day Active Ciclopirox Olamine 0.77 % 1 application Externally Twice a day to skin of feet including between the toes for 30 days Active Vitamin D3 20 MCG (800 UNIT) 1 tablet Orally Once a day A ctive Social History Tobacco Use: Social History Observation [...] Ordered Date Performed Result Body Sit e 51820-TOWYLDL NAIL, 6 OR MORE 10/26/2024 N/A Encounters Encounter Location Date Provider Diagnosis [facility] [address] [place] [address] 10/26/2024 Tarsha Villarreal Pain in right toe(s) [...] feet (ICD-10 - B35.3) Plan Of Treatment Pending Test Test Name Order Date 28962-ORYXBDX NAIL, 6 OR MORE 10/26/2024 Insurance Providers Payer Name Payer Address Payer Phone Subscriber Number Group Number Insured Name Patient Relationship to Insured Coverage Start Date Coverage End Date Medicare [employer] [address] [place] [address] [id number] Carrier, Collin Self - patient is the insured [address] [place] [address] [id number] Carrier, Collin Self - patient is the insured Medical (General) History Medical History History ICD Code Broken bones Cancer covid-19 Lung disease Osteoporosis Sciatica Measles Mumps Chicken pox Bone implants/screws Transfusions Surgical History Surgery Date(Month/Year) Lower Left Lobectomy 11/1979 prostatectomy 12/22/2015 right hip replacement 12/10/202 left hip replacement 08/29/2023 Middle Right Lobectomy 2012 Tendon surgery Left Thumb 04/28/2019
--- OUTSIDE RECORDS SUMMARY | 2025-01-20 18:18 | XMS_ITS ---
Author Organization [facility] Address [address] [place] [address] Care Team Providers Care Hydrostatic Tubing Tester Name Role Phone Flaca Aylin REAL Primary Care Provider Godwin Blum [phone] REASON FOR VISIT SCREENING COLON Problems Problem Type SNOMED Code ICD Code Onset Dates Problem Status W/U Status Risk Notes Problem Diverticular disease of colon (283569529) Diverticulosis of large intestine without perforation or abscess without bleeding (K57.30) Active confirmed Encounters Encounter Location Date Provider Diagnosis [facility] [place] [address] [place], [place] [phone] 06/05/2024 Godwin Hernández Colon cancer scree roma Z12.11 ; Colon polyps K63.5 ; Rectal polyp K62.1 ; Diverticulosis of large intestine without perforation or abscess without bleeding K57.30 ; Other hemorrhoids K64.8 ; Other specified disease of esophagus K22.89 ; Hiatal hernia K44.9 ; Abn findings-GI tract R93.3 and Chronic cough R05.3 Assessments Encounter Date Diagnosis (ICD Code) Assessment Notes Treatment Notes Treatment Clinical Notes Section Notes 06/05/2024 Colon cancer screening (ICD-10 - Z12.11) 06/05/2024 Colon polyps (ICD-10 - K63.5) 06/05/2024 Rectal polyp (ICD-10 - K62.1) 06/05/2024 Diverticulosis of large intestine without perforation or abscess without bleeding (ICD-10 - K57.30) 06/05/2024 Other hemorrhoids (ICD-10 - K64.8) 06/05/2024 Other specified disease of esophagus (ICD-10 - K22.89) 06/05/2024 Hiatal hernia (ICD-10 - K44.9) 06/05/2024 Abn findings-GI tract (ICD-10 - R93.3) 06/05/2024 Chronic cough (ICD-10 - R05.3) Plan Of Treatment No Information Progress Notes * CHELITA CASTILLO ADOB: [birth year] (74 yo M)Acc No.[id number]:06/05/2024 EGD and COL/MAC Patient:?CHELITA CASTILLO Provider:?Godwin Hernández MD :1950???Age:73 Y???Sex:Male Joe e:06/05/2024 Address:[address] [place], [place] [phone] Pcp:Aylin Thayer CNP Subjective: * Chief Complaints: * ???1. SCREENING COLON. * Medical History:? Objective: * Vitals:? Assessment: * Assessment: 1.?Colon cancer screening - Z12.11 (Primary)???2.?Colon polyps - K63.5???3.?Rectal polyp - K62.1???4.?Diverticulosis of large intestine without perforation or abscess without bleeding - K57.30???5.?Other hemorrhoids - K64.8???6.?Other specified disease of esophagus - K22.89???7.?Hiatal hernia - K44.9???8.?Abn findings-GI tract - R93.3???9.?Chronic cough - R05.3??? Plan: * Treatment: * Procedure Codes:?07704 LESIO N REMOVAL COLONOSCOPY, Modifiers: [place] , [address] COLONOSCOPY AND BIOPSY, Modifiers: 59 , PT, 0529F INTRVL 3+YRS PTS CLNSCP DOCD, 0528F RCMND FLW-UP 10 YRS DOCD, Modifiers: 1P , 24106 UPPER GI ENDOSCOPY, BIOPSY * * The named appointment provid er may or may not be the originator of this progress note, and it is not deemed complete until electronically signed by the appointment provider. Sign off status: Pending * Provider:?Godwin Hernández MD Date:? 024 Generated for Patricia jorge/Ricki/Molly on:?01/20/2025 06:18 PM EDT
--- OUTSIDE RECORDS SUMMARY | 2025-01-20 18:18 | XMS_ITS ---
Author Organization [facility] Address [address] [place] [address] Care Team Providers Care [employer] Teacher Name Role Phone Flaca Aylin REAL Primary Care Provider Godwin Blum [phone] Medications Medication SIG (Take, Route, Fr equency, Duration) Notes Start Date End Date Status Omeprazole 20 MG 1 Orally Once a day every morning for 30 day(s) 04/25/2024 Active Encounters Encounter Location Date Provider Diagnosis [facility] [address] [facility] [address] [place] [phone] 04/25/2024 Godwin Hernández Plan Of Treatment Medication Medication Name Sig Start Date Stop Date Notes Omeprazole 20 MG 1 Orally Once a day every morning for 30 day(s) 04/25/2024 Progress Notes * CHELITA CASTILLO ADOB: [birth year] (73 yo M)Acc No.[id number]:04/25/2024 Patient:?CHELITA CASTILLO :1950???Age:73 Y???Sex:Male Address:[address] [place], [place] [address] [address] * Refills? Start Omeprazole Capsule Delayed Release, 20 MG, Orally, 30, 1, Once a day every morning, 30 day(s), Refills=6 Subjective: * Chief Complaints: * ??? * Medical History:? * Surgical History:? * Hospitalization/Major Diagno stic Procedure:? * Medications:? Objective: Assessment: Plan: * Treatment: * Procedure Codes:? * true * Date:? Generated for Patricia jorge/Ricki/Molly on:?01/20/2025 06:18 PM EDT
--- OUTSIDE RECORDS SUMMARY | 2025-01-20 18:19 | XMS_ITS ---
Author Organization [facility] Address [address] [place] [address] Care Team Providers Care Financial Risk Manager Name Role Phone Flaca Aylin REAL Primary Care Provider Godwin Blum Unavailable [phone] Allergies Allergen (clinical drug ingredient) Drug/Non Drug Allergy documented on EMR Reaction Allergy Type Onset Date Status Penicillin Unknown Drug Allergy Active morphine Morphine Sulfate Unknown Drug Allergy Active REASON FOR VISIT Patient presents today for a colon screening Medications Medication SIG (Take, Route, Frequency, Duration) Notes Start Date End Date Status Calcium + D 500-1000-40 MG-UNT-MCG as directed Orally Active Vitamin B12 Active Fish Oil Active Social History Alcohol Screen Question Answer Notes Did you have a drink contain ing alcohol in the past year? Yes Points 4 Interpretation Positive How often did you have 6 or more drinks on one occasion in the past year? Never (0 point) How many drinks did you have on a typical day when you were drinking in the past year? 1 or 2 drinks (0 point) How often did you have a dri nk containing alcohol in the past year? 4 or more times a week (4 points) Section Notes: Nonsmoker since 1979; 1-2 dr inks per day Problems Problem Type SNOMED Code ICD Code Onset Dates Problem Status W/U Status Risk Notes Problem History of adenomatous polyp of colon (566090033) History of adenomatous polyp of colon (Z86.010) Active confirmed Problem Colon cancer screening (506377140) Colon cancer screening (Z12.11) Active confirmed Problem Dysphagia (69548002) Dysphagia (R13.10) Active confirmed Vital Signs Blood pressure systolic 00 mm Hg 02/18/20 24 Blood pressure diastolic 00 mm Hg 024 Height 66.5 in 02/18/2024 Weight 186 lbs 02/18/2024 BMI 29.57 kg/m2 02/18/2024 Encounters Encounter Location Date Provider Diagnosis [facility] [address] [place] [address] 02/18/2024 Godwin Hernández History of adenomato us polyp of colon Z86.010 ; Dysphagia R13.10 and Colon cancer screening Z12.11 Assessments Encounter Date Diagnosis (ICD Code) Assessment Notes Treatment Notes Treatment Clinical Notes Section Notes 02/18/2024 History of adenomatous polyp of colon [...] keep you advised of his progress. 02/18/2024 Colon cancer screening (ICD-10 - Z12.11) [...] to keep you advised of his progress. Plan Of Treatment Treatment Notes Assessment Notes Colon cancer screening Stop the fish oil for 1 week before the procedures Pending Test Test Name Order Date XR BARIUM SWALLOW-ESOPHAGUS 02/18/2024 Future Test Test Name Order Date UPPER GI ENDOSCOPY 02/18/2024 COLONOSCOPY 02/18/2024 Next Appt Details Follow Up: prn, Reason: Progress Notes * COLLIN CASTILLO ADOB: [birth year] (73 yo M)Acc No.[id number]:02/18/2024 Progress Notes Patient:?COLLIN CASTILLO Provider:?Godwin Hernández MD :1950???Age:73 Y???Sex:Male Joe e:02/18/2024 Address:[address] [place], [place] [id number] Pcp:Aylin Thayer CNP Subjective: * Chief Complaints: * ???Patient presents today fo r a colon screening * HPI: ???incontinence:? I saw Collin in consultation today in regard to further evaluation of his need for colorectal cancer screening and his intermittent episodes of coughing while eating. ?I last saw Collin in 2012, at which time he underwent a negative screening colonoscopy. He did have a colonoscopy in 2007 with removal of a small tubular adenoma. He presently feels well. He reports his bowel movements have been regular and without any signs of bleeding. He denies any known family history of colon cancer. He denies abdominal pain, jaundice, nor weight loss. ?He does describe intermittent episodes of having to cough while he is eating in order to clear his throat. He denies any actual dysphagia, need to regurgitate, or need to stop eating. He denies any significant heartburn nor early satiety. He has never had an upper endoscopy. * ROS:?General/Constitutional:?Change in appetite?denies.?Chills?denies.?Fatigue?denies.?Ophthalmologic:?Patient denies? Negative..?ENT:?Patient denies?Negative..?Respiratory:?Patient denies?No coughing/hemoptysis..?Cardiovascular:?Patient denies? No chest pain/orthopnea..?Gastrointestinal:?Comments?See HPI for details.?Genitourinary:?Patient denies? No dysuria/hematuria..?Musculoskeletal:?Patient denies? No specific arthralgias/myalgias..?Skin:?Patient denies?No rash/pruritus..?Neurologic:?Patient denies? No headaches/seizures..?Psychiatric:?Patient denies?Negative..? * Medical History:? * Surgical History:?Left lower lung resection in 1979 for bronchiectasis, and another lung surgery in 2010 for the RML at [facility] Prostatectomy 2015Total right hip replacement 2019Total left hip replacement 2022 * Hospitalization/Major Diagno stic Procedure:?No Hospitalization History. * Family History:?Father: dece ased.?Mother: .? The patient denies any family history of colorectal cancer nor polyps. * Social History:?Tobacco Use:?Tobacco Use/Smoking?Are you a: nonsmoker.?Drugs/Alcohol:?Alcohol Screen?Did you have a drink containing alcohol in the past year??Yes,?How often did you have 6 or more drinks on one occasion in the past year??Never (0 point),?How many drinks did you have on a typical day when you were drinking in the past year??1 or 2 drinks (0 point),?How often did you have a drink containing alcohol in the past year??4 or more times a week (4 points),?Points?4,?Interpretation?Positive.?Miscellaneous:?Marital status: . Occupation: retired. ???Nonsmoker since 1979; 1-2 drinks per day. * Medications:?TakingVitamin B 12 Calcium + D 500-1000-40 MG-UNT-MCG Tablet Chewable as directed Orally Fish Oil Taking Vitamin B12 Taking Calcium + D 500-1000-40 MG-UNT-MCG Tablet Chewable as directed Orally Taking Fish Oil DiscontinuedNiacin Aspirin Childrens 81mg Suprep Bowel Prep 1 kit Solution as directed Orally as directedMedication List reviewed and reconciled with the patientDiscontinued Niacin Discontinued Aspirin Childrens 81mg Discontinued Suprep Bowel Prep 1 kit Solution as directed Orally as directedMedication List reviewed and reconciled with the patient * Allergies:?PenicillinMorphin e Sulfateyes[Allergies Verified] Objective: * Vitals:?Wt: 186 lbs, Ht: 66. 5 in, BMI:29.57 Index, BP: 00/00 mm Hg. * Examination: ???General Examination: ?GENERAL APPEARANCE:?pleasant, well nourished, well developed, in no acute distress.?EYES:?sclera non-icteric.?ORAL CAVITY:?mucosa moist.?NECK/THYROID:?no cervical lymphadenopathy, neck supple.?SKIN:?nonjaundiced, no spider angiomata..?HEART:?S1, S2 normal.?LUNGS:?clear to auscultation bilaterally.?ABDOMEN:?normal bowel sounds, no guarding or rigidity, no hepatosplenomegaly, no masses palpable, soft, nontender, nondistended..?EXTREMITIES:?no edema.?NEUROLOGIC:?alert and oriented.? Assessment: * Assessment: 1.?Dysphagia - R13.10 (Prima ry)?2.?History of adenomatous polyp of colon - Z86.010?3.?Colon cancer screening - Z12.11? Overall, Collin appears quit e well. I did recommend a followup colonoscopy [...] to keep you advised of his progress. Plan: * Treatment: * ?Procedure: UPPER GI ENDOSCOPY (Ordered for 02/18/2024)* with MAC [place] [facility] [place] at 8:40 a.m. 2.?History of adenomatous polyp of colon?Procedure: COLONOSCOPY (Ordered for 02/18/2024)* with MAC Scheduled at [facility] [place] 06[place]05-2024 at 8:40 a.m. 3.?Colon cancer screening?Procedure: COLONOSCOPY (Ordered for 02/18/2024)* with MAC Scheduled at [facility] [place] 06[place]05-2024 at 8:40 a.m. Notes: Stop the fish oil for 1 week before the procedures?? * Procedure Codes:?3017F COLOR ECTAL CA SCREEN DOC [id number] TOBACCO [id number] BP SCR NOT PRFRM REC REASON NOS * Preventive Medicine:? ??Counseling:?Care goal follow-up plan:?Above Normal BMI Follow-up?Giving encouragement to exercise,?BMI management provided?Yes.? * Follow Up:?prn * * Sign off status: Completed true * Provider:?Godwin Hernández MD Date:? 024 Generated for Patricia jorge/Ricki/eTransmitting on:?01/20/2025 06:18 PM EDT History and Physical Notes * HPI (History of Present Illness) Category Sub-Category Detail Notes Category Not es incontinence I saw Collin in consultation today in regard to further evaluation of his need for colorectal cancer screening and his intermittent episodes of coughing while eating. I last saw Collin in 2012, at which time he underwent a negative screening colonoscopy. He did have a colonoscopy in 2007 with removal of a small tubular adenoma. He presently feels well. He reports his bowel movements have been regular and without any signs of bleeding. He denies any known family history of colon cancer. He denies abdominal pain, jaundice, nor weight loss. He does describe intermittent episodes of having to cough while he is eating in order to clear his throat. He denies any actual dysphagia, need to regurgitate, or need to stop eating. He denies any significant heartburn nor early satiety. He has never had an upper endoscopy. Examination Category Sub-Category Detail Notes Category Not es General Examination GENERAL APPEARANCE: pleasant , well nourished, well developed, in no acute distress EYES: sclera non-icteric NECK/THYROID: no cervical lymphade nopathy, neck supple HEART: S1, S2 normal LUNGS: clear to auscultatio n bilaterally ABDOMEN: normal bowel sounds, no guarding or rigidity, no hepatosplenomegaly, no masses palpable, soft, nontender, nondistended. NEUROLOGIC: alert and oriented SKIN: nonjaundiced, no spi oskar angiomata. EXTREMITIES: no edema ORAL CAVITY: mucosa moist
== END 2025-01-20 16:07 | disposition home or self-care (01) ==
LOC: HO.HPS 15:38
PROVIDERS: PCP Nurse Practitioner Family; Visit Provider Internal Medicine
DX: G47.33 Obstructive sleep apnea (adult) (pediatric) (principal); Z99.89 Dependence on other enabling machines and devices
CPT/HCPCS: 99213

== ENCOUNTER → 2025-01-20 15:37 | Outpatient (BNVA) | payer MEDICARE, OTHER, SELFPAY | PROVIDERS: PCP Nurse Practitioner Family; Visit Provider Internal Medicine | DX: G47.33 Obstructive sleep apnea (adult) (pediatric) (principal); Z99.89 Dependence on other enabling machines and devices | CPT/HCPCS: 99212 ==

== ENCOUNTER 2025-04-13 09:42 | Outpatient (AMB) | payer MEDICARE, OTHER, SELFPAY ==
[2025-04-13 09:51] VITALS: BP 122/62; PULSE 66; O2SAT 96; BMI 29.9
--- NOTE | 2025-04-13 09:51 | A.OFFVIS_ITS ---
Vital Signs 04/13/25 09:51 Height 5 ft 6 in Weight 185 lb 3.013 oz BMI 29.9 BP 122/62 Blood Pressure Location Lt brachial Position Sitting Pulse 66 Pulse Source Pulse Oximeter Pulse Oximetry (%) 96 Oxygen Delivery Method Room Air Intake Visit Reasons: Obstructive sleep apnea Intake Note: pt is here for follow up ankush and feeling fine Automation Controls Expert Required: No Allergies Penicillins Allergy (Severe, Verified 04/13/25 10:10) Hives morphine Adverse Reaction (Unknown, Verified 04/13/25 10:10) paranoid Medication List - Last Reconciled 04/13/25 by Lucia Santos MD calcium carbonate-vitamin D3 600 mg-5 mcg (200 unit) 1 tab PO DAILY cholecalciferol (vitamin D3) 50 mcg PO DAILY cyanocobalamin (vitamin B-12) (Vitamin B-12) 100 mcg PO DAILY omega 0-aga-nkl-fish oil 900-1,400 mg 1 cap PO DAILY Do you need a note to return to daycare/school/sports/work: No HPI HPI Obstructive sleep apnea: Details: This 74 years old very pleasant gentleman returns after 2 months for follow-up. We had adjusted the pressure to 12 cm. He has no issue with this pressure but there is slight air leak during the night which does not wake him up. He is happy with the current settings and say is that he sleeps well. [facility] Medical History Prostate cancer Elevated cholesterol ANKUSH on CPAP Surgical History Hx of bilateral hip replacements Hx of prostatectomy History of lung surgery H/O colonoscopy Social History Household Members: Spouse Patient Tobacco Use Status: Former Tobacco user Review of Systems Const All systems reviewed & are unremarkable except as noted in HPI and below Eyes Reports no additional complaints ENT Reports nasal congestion (Mild off and on especially in the morning hours) Card Denies chest pain, Denies irregular heart rhythm and Denies leg edema GI Reports no additional complaints Reports no additional complaints Musc Reports no additional complaints Skin/Breast Reports system reviewed and no additional complaints, except as documented Neuro Reports no additional complaints Psych Reports no additional complaints Physical Exam Vital Signs: Last Vital Signs Pulse 66 04/13/25 09:51 BP 122/62 04/13/25 09:51 Pulse Ox 96 04/13/25 09:51 Oxygen Delivery Method Room Air 04/13/25 09:51 BMI result Body Mass Index 29.9 Const General: healthy appearing, comfortable, no acute distress, alert and awake Orientation/consciousness: patient oriented x3 HEENT Head: Yes normal to inspection General nose exam: No nasal polyps present, No nasal discharge present and Other nasal findings present (Mild hypertrophy of the inferior nasal turbinate on the left side .) Face and sinus: Yes sinuses nontender Mouth: oropharynx normal Throat: Yes posterior oropharynx normal Eyes General: appearance normal, both eyes and all related structures Neck Neck: Yes normal visual inspection, Yes no lymphadenopathy, Yes trachea midline and Yes no JVD Thyroid: Thyroid normal Chest Chest palpation & inspection: normal inspection of the chest, normal palpation of entire chest wall and no tenderness Resp Effort & Inspection: normal respiratory effort Auscultation: clear to auscultation bilaterally, no crackles and no wheezes Percussion: percussion normal Cardio Palpation: normal PMI Rate: regular rate Rhythm: regular rhythm Heart sounds: no gallops and no murmurs Peripheral pulses: Peripheral pulses 2+ throughout GI Palpation (GI): Soft to palpation, nontender, No hepatosplenomegaly present and no masses Auscultation: normal bowel sounds Back/Spine/Pelvis Thoracic/Lumbar Spine: thoracic and lumbar spine normal to inspection Skin General skin exam: no rashes or lesions noted Neuro General: patient oriented x3 and no focal motor deficits Cranial nerves: Yes CN's II-XII intact bilaterally Extrem General: Yes normal to inspection, Yes no clubbing, cyanosis or edema and Yes no calf tenderness Psych Appearance: grossly normal and well kempt Speech and movement: Normal speech and movement present Results Reviewed Results Reviewed: Compliance report for the last 30 days is reviewed. He has used 30/30 nights., 100% Average use it per night. 7 hours 33 minutes Pressure setting CPAP-12 cm . There is only minimal. Air leak Residual AHI 4.7, much improved from before ( 14 ) Assessment & Plan Assessment & Plan (1) ANKUSH on CPAP: Comment: LONG-TERM CASE OF ANKUSH. VERY COMPLIANT TO USE CPAP AT NIGHT, SLEEPS VERY GOOD AND HAS NO ISSUES RELATING TO THE MASK OR MACHINE The obstructive component is optimally controlled at present. Code(s): G47.33 - Obstructive sleep apnea (adult) (pediatric); Z99.89 - Dependence on other enabling machines and devices Category: Medical Plan: Discussed the results with him. Commended for good compliance. Advised to continue using CPAP at current setting of 12 cm with fullface mask. Coding Level of Care Code Est Pt Level 3 (71022) Diagnoses ANKUSH on CPAP G47.33; Z99.89
--- OUTSIDE RECORDS SUMMARY | 2025-04-13 10:49 | XMS_ITS ---
Author Organization [facility] Address [address] [place] [address] Care Team Providers Care Film Or Videotape Editor Name Role Phone Flaca Aylin REAL Primary Care Provider Godwin Blum [phone] Medications Medication SIG (Take, Route, Fr equency, Duration) Notes Start Date End Date Status Omeprazole 20 MG 1 Orally Once a day every morning for 30 day(s) 04/25/2024 Active Encounters Encounter Location Date Provider Diagnosis [facility] [address] [facility] [address] [place] [phone] 04/25/2024 Godwin Hernández Plan Of Treatment Medication Medication Name Sig Start Date Stop Date Notes Omeprazole 20 MG 1 Orally Once a day every morning for 30 day(s) 04/25/2024 Progress Notes * CHELITA CASTILLO ADOB: [birth year] (73 yo M)Acc No.[id number]:04/25/2024 Patient:?CHELITA CASTILLO :1950???Age:73 Y???Sex:Male Address:[address] [place], [place] [address] [address] * Refills? Start Omeprazole Capsule Delayed Release, 20 MG, Orally, 30, 1, Once a day every morning, 30 day(s), Refills=6 Subjective: * Chief Complaints: * ??? * Medical History:? * Surgical History:? * Hospitalization/Major Diagno stic Procedure:? * Medications:? Objective: Assessment: Plan: * Treatment: * Procedure Codes:? * true * Date:? Generated for Patricia jorge/Ricki/Molly on:?04/13/2025 10:49 AM EDT
== END 2025-04-13 10:10 | disposition home or self-care (01) ==
LOC: HO.HPS 09:42
PROVIDERS: PCP Nurse Practitioner Family; Visit Provider Internal Medicine
DX: G47.33 Obstructive sleep apnea (adult) (pediatric) (principal); Z99.89 Dependence on other enabling machines and devices
CPT/HCPCS: 99213

== ENCOUNTER → 2025-04-13 09:42 | Outpatient (BNVA) | payer MEDICARE, OTHER, SELFPAY | PROVIDERS: PCP Nurse Practitioner Family; Visit Provider Internal Medicine | DX: G47.33 Obstructive sleep apnea (adult) (pediatric) (principal); Z99.89 Dependence on other enabling machines and devices | CPT/HCPCS: 99212 ==

== ENCOUNTER 2025-10-12 09:22 | Outpatient (AMB) | payer MEDICARE, OTHER, SELFPAY ==
--- NOTE | 2025-10-12 09:31 | A.OFFVIS_ITS ---
Vital Signs 10/12/25 09:32 Height 5 ft 6 in Weight 188 lb 7.924 oz BMI 30.4 BP 120/70 Blood Pressure Location Lt brachial Position Sitting Pulse 60 Pulse Source Pulse Oximeter Pulse Oximetry (%) 100 Oxygen Delivery Method Room Air Intake Visit Reasons: Obstructive sleep apnea Intake Note: pt is here for follow up and states he is feeling good, he does have some sniffles. Ramp Manager Required: No Set Up Mechanic Automatic Line: Set Up Mechanic Automatic Line offered & declined Allergies Penicillins Allergy (Severe, Verified 10/12/25 09:35) Hives morphine Adverse Reaction (Unknown, Verified 10/12/25 09:35) paranoid Do you need a note to return to daycare/school/sports/work: No HPI HPI Obstructive sleep apnea: Details: Collin is a case of moderate obesity and obstructive sleep apnea, .He is here for 6 months follow-up Uses CPAP very religiously every night and sleeps well. He has only minimal leak off and on but no major issues with the use of CPAP. He gets good sleep up to 7 hours per night. [facility] Medical History Prostate cancer Elevated cholesterol MARELY on CPAP Surgical History Hx of bilateral hip replacements Hx of prostatectomy History of lung surgery H/O colonoscopy Social History Household Members: Spouse Patient Tobacco Use Status: Former Tobacco user Review of Systems Const All systems reviewed & are unremarkable except as noted in HPI and below Eyes Reports no additional complaints ENT Reports nasal congestion (Mild off and on especially in the morning hours) Card Denies chest pain, Denies irregular heart rhythm and Denies leg edema GI Reports no additional complaints Reports no additional complaints Musc Reports no additional complaints Skin/Breast Reports system reviewed and no additional complaints, except as documented Neuro Reports no additional complaints Psych Reports no additional complaints Physical Exam Vital Signs: Last Vital Signs Pulse 60 10/12/25 09:32 BP 120/70 10/12/25 09:32 Pulse Ox 100 10/12/25 09:32 Oxygen Delivery Method Room Air 10/12/25 09:32 BMI result Body Mass Index 30.4 Const General: healthy appearing, comfortable, no acute distress, alert and awake Orientation/consciousness: patient oriented x3 HEENT Head: Yes normal to inspection General nose exam: No nasal polyps present, No nasal discharge present and Other nasal findings present (Mild hypertrophy of the inferior nasal turbinate on the left side .) Face and sinus: Yes sinuses nontender Mouth: oropharynx normal Throat: Yes posterior oropharynx normal Eyes General: appearance normal, both eyes and all related structures Neck Neck: Yes normal visual inspection, Yes no lymphadenopathy, Yes trachea midline and Yes no JVD Thyroid: Thyroid normal Chest Chest palpation & inspection: normal inspection of the chest, normal palpation of entire chest wall and no tenderness Resp Effort & Inspection: normal respiratory effort Auscultation: clear to auscultation bilaterally, no crackles and no wheezes Percussion: percussion normal Cardio Palpation: normal PMI Rate: regular rate Rhythm: regular rhythm Heart sounds: no gallops and no murmurs Peripheral pulses: Peripheral pulses 2+ throughout GI Palpation (GI): Soft to palpation, nontender, No hepatosplenomegaly present and no masses Auscultation: normal bowel sounds Back/Spine/Pelvis Thoracic/Lumbar Spine: thoracic and lumbar spine normal to inspection Skin General skin exam: no rashes or lesions noted Neuro General: patient oriented x3 and no focal motor deficits Cranial nerves: Yes CN's II-XII intact bilaterally Extrem General: Yes normal to inspection, Yes no clubbing, cyanosis or edema and Yes no calf tenderness Psych Appearance: grossly normal and well kempt Speech and movement: Normal speech and movement present Results Reviewed Results Reviewed: Compliance report for the last 30 nights is reviewed and he has used the CPAP 30/30 nights, 100% Average use it per night 7 hours 42 minutes Is pressure is relatively low, 12 cm No significant air leak noted Residual AHI only 2.2 Assessment & Plan Assessment & Plan (1) MARELY on CPAP: Comment: LONG-TERM CASE OF MAREYL. VERY COMPLIANT TO USE CPAP AT NIGHT, SLEEPS VERY GOOD AND HAS NO ISSUES RELATING TO THE MASK OR MACHINE Residual AHI only 2.2 which is not significant . Code(s): G47.33 - Obstructive sleep apnea (adult) (pediatric); Z99.89 - Dependence on ot her enabling machines and devices Category: Medical Plan: Commended for good compliance and advised to continue using the CPAP regularly Revisit 6 months. Coding Level of Care Code Est Pt Level 3 (83951) Diagnoses MARELY on CPAP G47.33; Z99.89
[2025-10-12 09:32] VITALS: BP 120/70; PULSE 60; O2SAT 100; BMI 30.4
== END 2025-10-12 09:44 | disposition home or self-care (01) ==
LOC: HO.HPS 09:23
PROVIDERS: PCP Nurse Practitioner Family; Visit Provider Internal Medicine
DX: G47.33 Obstructive sleep apnea (adult) (pediatric) (principal); Z99.89 Dependence on other enabling machines and devices
CPT/HCPCS: 99213

== ENCOUNTER → 2025-10-12 09:22 | Outpatient (BNVA) | payer MEDICARE, OTHER, SELFPAY | PROVIDERS: PCP Nurse Practitioner Family; Visit Provider Internal Medicine | DX: G47.33 Obstructive sleep apnea (adult) (pediatric) (principal); Z99.89 Dependence on other enabling machines and devices | CPT/HCPCS: 99212 ==